=== PATIENT | male | born 1990 | race Caucasian/White ===

== ENCOUNTER → 2024-09-08 13:53 | Outpatient (CLI) | payer OTHER, SELFPAY ==
--- NOTE | 2024-09-08 13:56 | DI.MRI.S_ITS ---
PROCEDURE: MR PELIS WO/W CON INDICATIONS: proctalgia fugax,hx adenomatous colonic polyps TECHNIQUE: Coronal HASTE, sagittal T2 FSE, axial T1 FSE, axial and coronal nonbreath-hold T2 FSE. Axial dynamic VIBE during administration of contrast. Post-contrast axial and coronal VIBE/2-D FLASH with fat saturation from the iliac crests to the symphysis. Optional diffusion weighted imaging and ADC may be performed. COMPARISON: None. FINDINGS: Image quality: Excellent. Bowel and peritoneum: No pathologic free pelvic fluid. Inferior colon and small bowel loops are normal in caliber. Genitourinary system: Bladder wall is normal in thickness. Distal ureters are non distended. Mild prostatomegaly. Prostate measures 3.4 x 4.6 x 3.9 centimeter Nodes and vessels: No pathologic pelvic or inguinal adenopathy by size criteria. Iliac vessels are normal in caliber. Soft tissues: No inguinal hernias. Bones: Marrow is normal in overall signal. IMPRESSION: Mild prostatomegaly. Otherwise, normal pelvic MRI. Dictated by: Thompson Fairchild M.D. on 09/09/2024 at 10:04 Approved by: Thompson Fairchild M.D. on 09/09/2024 at 10:17
== END ==
LOC: MRI 13:55
PROVIDERS: Referring Provider Physician Assistant; Visit Provider Physician Assistant
DX: N40.0 Benign prostatic hyperplasia without lower urinary tract symptoms (principal); K59.4 Anal spasm; Z86.0101 Personal history of adenomatous and serrated colon polyps
CPT/HCPCS: 72197; A9579

== ENCOUNTER → 2024-09-19 18:54 | Outpatient (CLI) | payer OTHER, SELFPAY ==
--- NOTE | 2024-09-19 18:55 | DI.MRI.S_ITS ---
PROCEDURE: MR KNEE LT WO CON INDICATIONS: pain TECHNIQUE: Noncontrast sagittal PD fast spin echo and T2 fast spin echo with fat saturation, sagittal 3-D FLASH with fat saturation; coronal T1 spin echo and PD fast spin echo with fat saturation, and axial PD fast spin echo with fat saturation through the knee. COMPARISON: None. FINDINGS: Image quality: Excellent. Menisci: Linear horizontal high T2 signal intensity traverses the middle and peripheral 3rd of the medial meniscal body, demonstrating inferior articular surface extension, indicating horizontal tearing. Vertically oriented linear high T2 signal intensity traverses the middle 3rd of the medial meniscal body and posterior horn, demonstrating superior and inferior articular surface extension, indicating vertical tearing. Lateral meniscus is intact. Cruciate ligaments: There is severe attenuation of the posterior cruciate ligament within its mid/superior aspect. Posterior cruciate ligament is intact. Medial structures: The medial collateral ligament appears intact, but demonstrates mild surrounding T2 signal elevation. Visualized portions of the pes anserinus tendons appear normal. Mild T2 signal elevation within the semimembranosus at the tibial insertion site. No abnormal bursal fluid. Lateral structures: The lateral collateral ligament demonstrates moderate T2 signal elevation within its mid/superior aspects. long and short heads of the biceps femoris tendon appear intact. The popliteus tendon appears normal. Iliotibial band appears normal. Anterior structures: The quadriceps and patellar tendons appear intact. Patellar alignment is normal. No femoral trochlear dysplasia or ventral trochlear prominence. No edema in the infrapatellar fat pad. Bones and cartilage: Mild ill-defined STIR signal elevation within the posterior weight-bearing aspect of medial tibial and lateral tibial plateau. There is linear low T1/T2 signal intensity traversing the anterior weight-bearing aspect of the lateral femoral condyle, as well as mild, roughly 1-2 mm overlying depression of the cortex, spanning 13 mm anteroposterior, with moderate underlying ill-defined STIR signal elevation, indicating contusion. Moderate articular cartilage loss diffusely overlies the weight-bearing aspects of the medial femoral condyle and medial tibial plateau. Joint space: There is a moderate knee joint effusion and a small Gonzalez's cyst. Normal appearing synovial plicae are incidentally noted. IMPRESSION: 1. Partial-thickness anterior cruciate ligament tear. 2. Mildly depressed fracture of the lateral femoral condyle anteriorly with underlying contusion. Contusion within the medial and lateral tibial plateau posteriorly. 3. Medial collateral ligament strain. Partial-thickness tear of the lateral collateral ligament. 4. Knee joint effusion and Gonzalez's cyst. 5. Complex tearing of the medial meniscus. 6. Low-grade tearing of the semimembranosus at the tibial insertion site. Dictated by: Lizabeth Armenta M.D. on 09/23/2024 at 11:36 Approved by: Lizabeth Armenta M.D. on 09/23/2024 at 11:41
== END ==
PROVIDERS: Referring Provider Student in an Organized Health Care Education/Training Program; Visit Provider Student in an Organized Health Care Education/Training Program
DX: S83.512A Sprain of anterior cruciate ligament of left knee, initial encounter (principal); S72.422A Displaced fracture of lateral condyle of left femur, initial encounter for closed fracture; S80.12XA Contusion of left lower leg, initial encounter; S83.412A Sprain of medial collateral ligament of left knee, initial encounter; S83.422A Sprain of lateral collateral ligament of left knee, initial encounter; S83.232A Complex tear of medial meniscus, current injury, left knee, initial encounter; S83.8X2A Sprain of other specified parts of left knee, initial encounter; M25.462 Effusion, left knee; X58.XXXA Exposure to other specified factors, initial encounter
CPT/HCPCS: 73721